=== PATIENT | female | born 1985 | race African-American/Black ===

== ENCOUNTER → 2024-12-28 16:01 | Outpatient (CLI) | payer OTHER, SELFPAY ==
--- NOTE | 2024-12-28 16:04 | DI.MRI.S_ITS ---
PROCEDURE: MR HIP RT WO/W CON
== END ==
LOC: MRI 16:03
PROVIDERS: Referring Provider Orthopaedic Surgery; Visit Provider Orthopaedic Surgery
DX: S73.191A Other sprain of right hip, initial encounter (principal); D48.19 Other specified neoplasm of uncertain behavior of connective and other soft tissue
CPT/HCPCS: 73723; A9579